=== PATIENT | male | born 1950 | race African-American/Black ===

== ENCOUNTER 2019-04-28 18:28 | Emergency (ER) | payer OTHER, MEDICARE, MEDICAID ==
[~2019-04-28] VITALS: Ht 200.7 cm; Wt 87.0 kg
[2019-04-28] MEDS ORDERED: KETOROLAC 60MG/2ML VIAL IM STA (19:43)
[2019-04-28] MEDS ORDERED: ALBUTEROL (0.083%) 2.5MG/3ML NEB HHN STA (19:43)
[2019-04-28] MEDS ORDERED: IPRATROPIUM BROMIDE (0.02%) 0.5MG/2.5ML NEB HHN STA (19:43)
[2019-04-28] MEDS ORDERED: HYDROCODONE/ACETAMINOPHEN 5/325MG TABLET PO ONE (19:45)
[2019-04-28] MEDS ORDERED: MORPHINE SULFATE 4 MG/ML CPJ (NOT FOR IM USE) IV ONE (21:15)
[2019-04-28 21:28] LABS: CHLORIDE 104 mEq/L (98-107)
[2019-04-28] MEDS ORDERED: IOHEXOL-300 100 ML BOTTLE ONE (22:39)
[2019-04-28 23:40] LABS: HEMATOCRIT. 44.6 % (42.0-52.0); HEMOGLOBIN. 14.8 g/dL (14.0-18.0); MEAN CORPUSCULAR HEMOGLOBIN 31.4 pg (28.0-32.0); MEAN CORPUSCULAR VOLUME 94.3 fL (80.0-94.0); MEAN PLATELET VOLUME 9.7 fl (7.4-10.4); PLATELET 209 x1000/uL (130-400); RED BLOOD CELL COUNT 4.73 mill/uL (4.7-6.1); RED CELL DISTRIBUTION WIDTH 14.2 % (11.6-14.6)
[2019-04-28 23:51] LABS: PARTIAL THROMBOPLASTIN TIME 25.4 sec (23.4-31.0)
[2019-04-28 23:58] LABS: CHLORIDE 105 mEq/L (98-107)
[2019-04-29 01:01] LABS: PLATELET ESTIMATE NORMAL
[2019-04-29 01:29] VITALS: BP 148/78
== END 2019-04-29 01:26 | disposition short-term general hospital (02) ==
LOC: ER 19:02
DX: S27.0XXA Traumatic pneumothorax, initial encounter (principal); R06.03 Acute respiratory distress; S22.21XA Fracture of manubrium, initial encounter for closed fracture; J44.9 Chronic obstructive pulmonary disease, unspecified; Z86.11 Personal history of tuberculosis; V43.52XA Car driver injured in collision with other type car in traffic accident, initial encounter; W22.11XA Striking against or struck by driver side automobile airbag, initial encounter; Y93.89 Activity, other specified; Y92.488 Other paved roadways as the place of occurrence of the external cause
CPT/HCPCS: 36415; 70490; 71260; 74177; 80053; 84484; 85025; 85610; 85730; 93005; 94640; 96372; 96374; 99291; J1885; J2270; J7611; Q9967